=== PATIENT | female | born 1995 | race American Indian/Alaskan Native ===

== ENCOUNTER 2017-05-24 17:49 | Emergency (ER) | payer BC ==
[2017-05-24 19:59] LABS: Basophils % (Auto) 0.3 % (0.0-1.8); Eosinophils % (Auto) 0.1 % (0.0-4.3); Hematocrit 39.4 % (30.3-42.9); Hemoglobin 13.4 gm/dl (10.1-14.3); Mean Corpuscular HGB Conc 34 % (30-34); Mean Corpuscular Hemoglobin 31 pg (28-32); Mean Corpuscular Volume 92 fl (79-97); Platelet Count 292 K/mm3 (140-440); Red Blood Count 4.31 M/mm3 (3.65-5.03); Red Cell Distribution Width 12.3 % (13.2-15.2); White Blood Count 8.2 K/mm3 (4.5-11.0)
[2017-05-24 20:21] LABS: Anion Gap 16 mmol/L; BUN/Creatinine Ratio 18.57; Blood Urea Nitrogen 13 mg/dL (7-17); Calcium 8.9 mg/dL (8.4-10.2); Carbon Dioxide 28 mmol/L (22-30); Chloride 102.2 mmol/L (98-107); Creatine Kinase 46 units/L (30-135); Glucose 89 mg/dL (65-100); Potassium 3.8 mmol/L (3.6-5.0); Sodium 142 mmol/L (137-145)
--- NOTE | 2017-05-24 20:34 | Emergency Department Report ---
ED General Adult HPI - General Chief complaint: Allergic Reaction Stated complaint: ALLERGIC REACTION Time Seen by Provider: 05/24/17 20:33 Source: patient, RN notes reviewed Mode of arrival: Ambulatory Limitations: No Limitations - History of Present Illness Initial comments: This is a 21-year-old female, the patient is previously known to this provider. She denies chronic past medical conditions. She reports that she does not currently have an indwelling tampon, and that she does not take control tablets. The patient presents to the ER with diffuse rash. The rash is "all over my body." History of present for 3 days, and does not have exacerbating or relieving factors. Patient seen at an urgent care Center recently for same, given steroid shot, Zyrtec and hydroxyzine. Patient reports being sexually active with 2 male partners, either from use condoms. She denies headache, neck pain, abdominal pain, shortness of breath. She did complain of central chest pain, which has been present for over 24 hours, is intermittent, and worsens with swallowing. The pain does not radiate to the back, arms or neck. Contrary to what is documented in triage nurse documentation, patient denies lip swelling to me, as well as difficulty breathing. These lesions have no exacerbating or relieving factors. -: Gradual Location: chest, back, abdomen, left, right, upper extremity, lower extremity Severity scale (0 -10): 0 Consistency: constant Improves with: none Worsens with: none Associated Symptoms: chest pain, fever/chills (patient does not complain of fever per se, but is found to be febrile in the emergency department.) - Related Data Allergies Allergy/AdvReac Type Severity Reaction Status Date / Time No Known Allergies Allergy Unverified 05/24/17 17:58 ED Review of Systems ROS: Stated complaint: ALLERGIC REACTION Other details as noted in HPI Constitutional: denies: malaise Eyes: denies: vision change ENT: denies: throat pain Respiratory: denies: cough Cardiovascular: chest pain Gastrointestinal: denies: vomiting Genitourinary: denies: urgency, dysuria Musculoskeletal: denies: back pain, arthralgia Skin: rash, lesions Neurological: denies: weakness Psychiatric: anxiety ED Past Medical Hx - Past Medical History Previous Medical History?: No - Surgical History Past Surgical History?: No - Social History Smoking Status: Never Smoker Substance Use Type: Marijuana ED Physical Exam - General Limitations: No Limitations General appearance: alert, in no apparent distress - Head Head exam: Present: atraumatic, normocephalic - Eye Eye exam: Present: normal appearance, PERRL, EOMI. Absent: nystagmus - ENT ENT exam: Present: normal exam, normal orophraynx, mucous membranes moist, TM's normal bilaterally, normal external ear exam - Neck Neck exam: Present: normal inspection, full ROM. Absent: tenderness, meningismus - Respiratory Respiratory exam: Present: normal lung sounds bilaterally. Absent: respiratory distress, wheezes, rales, rhonchi, stridor, chest wall tenderness - Cardiovascular Cardiovascular Exam: Present: regular rate, normal rhythm, normal heart sounds. Absent: bradycardia, tachycardia, irregular rhythm, systolic murmur, diastolic murmur, rubs, gallop - GI/Abdominal GI/Abdominal exam: Present: soft, normal bowel sounds. Absent: distended, tenderness, guarding, rebound, rigid, pulsatile mass - External exam: Present: normal external exam Speculum exam: Present: normal speculum exam Bi-manual exam: Present: normal bi-manual exam, other (escorted by ER automotive service technician YAHAIRA SENIOR). Absent: cervical motion tendernes, adnexal tenderness , adnexal mass - Extremities Exam Extremities exam: Present: normal inspection, full ROM, normal capillary refill. Absent: tenderness, pedal edema, joint swelling, calf tenderness - Back Exam Back exam: Present: normal inspection, full ROM. Absent: tenderness, CVA tenderness (R), CVA tenderness (L), muscle spasm, paraspinal tenderness, vertebral tenderness - Neurological Exam Neurological exam: Present: alert, oriented X3, normal gait, other (Extraocular movements intact. Tongue midline. No facial droop. Facial sensation intact to light touch in the V1, V2, V3 distribution bilaterally. 5 and 5 strength in 4 extremities.. Sensation is intact to light touch in 4 extremities.). Absent : motor sensory deficit - Psychiatric Psychiatric exam: Present: normal affect, normal mood - Skin Skin exam: Present: warm, rash, other (there is diffuse erythematous macular rash, no streaking, no crepitus, nontender, no purpura,) ED Course Vital Signs 05/24/17 05/24/17 05/24/17 17:54 19:38 21:10 Temperature 100.5 F H 98.3 F Pulse Rate 98 H 90 Respiratory 18 18 20 Rate Blood Pressure 124/81 Blood Pressure 113/69 [Left] O2 Sat by Pulse 99 100 Oximetry 05/24/17 22:59 Temperature 98.1 F Pulse Rate 78 Respiratory 18 Rate Blood Pressure Blood Pressure 118/74 [Left] O2 Sat by Pulse 100 Oximetry ED Medical Decision Making - Lab Data Result diagrams: 05/24/17 19:36 05/24/17 19:36 Vital Signs 05/24/17 05/24/17 05/24/17 17:54 19:38 21:10 Temperature 100.5 F H 98.3 F Pulse Rate 98 H 90 Respiratory 18 18 20 Rate Blood Pressure 124/81 Blood Pressure 113/69 [Left] O2 Sat by Pulse 99 100 Oximetry Lab Results 05/24/17 05/24/17 05/24/17 Range/Units 19:36 19:36 19:36 WBC 8.2 (4.5-11.0) K/mm3 RBC 4.31 (3.65-5.03) M/mm3 Hgb 13.4 (10.1-14.3) gm/dl Hct 39.4 (30.3-42.9) % MCV 92 (79-97) fl MCH 31 (28-32) pg MCHC 34 (30-34) % RDW 12.3 L (13.2-15.2) % Plt Count 292 (140-440) K/mm3 Lymph % (Auto) 48.8 H (13.4-35.0) % Meeker % (Auto) 7.5 H (0.0-7.3) % Eos % (Auto) 0.1 (0.0-4.3) % Baso % (Auto) 0.3 (0.0-1.8) % Lymph # 4.0 (1.2-5.4) K/mm3 Meeker # 0.6 (0.0-0.8) K/mm3 Eos # 0.0 (0.0-0.4) K/mm3 Baso # 0.0 (0.0-0.1) K/mm3 Seg Neutrophils % 43.3 (40.0-70.0) % Seg Neutrophils # 3.6 (1.8-7.7) K/mm3 Sodium 142 (137-145) mmol/L Potassium 3.8 (3.6-5.0) mmol/L Chloride 102.2 (98-107) mmol/L Carbon Dioxide 28 (22-30) mmol/L Anion Gap 16 mmol/L BUN 13 (7-17) mg/dL Creatinine 0.7 (0.7-1.2) mg/dL Estimated GFR > 60 ml/min BUN/Creatinine Ratio 18.57 % Glucose 89 (65-100) mg/dL Calcium 8.9 (8.4-10.2) mg/dL Total Creatine Kinase 46 (30-135) units/L Troponin T (0.00-0.029) ng/mL NT-Pro-B Natriuret Pep 74.04 (0-450) pg/mL HCG, Qual Negative (Negative) 05/24/17 Range/Units Unknown WBC (4.5-11.0) K/mm3 RBC (3.65-5.03) M/mm3 Hgb (10.1-14.3) gm/dl Hct (30.3-42.9) % MCV (79-97) fl MCH (28-32) pg MCHC (30-34) % RDW (13.2-15.2) % Plt Count (140-440) K/mm3 Lymph % (Auto) (13.4-35.0) % Meeker % (Auto) (0.0-7.3) % Eos % (Auto) (0.0-4.3) % Baso % (Auto) (0.0-1.8) % Lymph # (1.2-5.4) K/mm3 Meeker # (0.0-0.8) K/mm3 Eos # (0.0-0.4) K/mm3 Baso # (0.0-0.1) K/mm3 Seg Neutrophils % (40.0-70.0) % Seg Neutrophils # (1.8-7.7) K/mm3 Sodium (137-145) mmol/L Potassium (3.6-5.0) mmol/L Chloride (98-107) mmol/L Carbon Dioxide (22-30) mmol/L Anion Gap mmol/L BUN (7-17) mg/dL Creatinine (0.7-1.2) mg/dL Estimated GFR ml/min BUN/Creatinine Ratio % Glucose (65-100) mg/dL Calcium (8.4-10.2) mg/dL Total Creatine Kinase (30-135) units/L Troponin T < 0.010 (0.00-0.029) ng/mL NT-Pro-B Natriuret Pep (0-450) pg/mL HCG, Qual (Negative) - EKG Data -: EKG Interpreted by Me EKG shows normal: sinus rhythm, axis, intervals, QRS complexes, ST-T waves - EKG Data When compared to previous EKG there are: previous EKG unavailable - Radiology Data Radiology results: image reviewed interpreted by me: X-ray of the chest is negative for acute disease - Medical Decision Making Differential diagnosis: Viral exanthem, hepatitis, acute HIV syndrome, syphilis , pneumonia, acute coronary syndrome, dysphagia Assessment and plan: 21-year-old female who is a primary complaint of rash. She also has a low-grade temperature. The rash does not appear to be consistent with purpura, or fever resolved on its own, there is no joint involvement, there is a benign gynecologic exam, with no retained tampon, there are no retained foreign bodies as far as I continue my physical exam, therefore toxic shock syndrome is very unlikely. May be a simple viral exanthem, however given that she is very young, and sexually intimate with 2 partners, STds also a possibility. Patient did complain of nonspecific chest pain, present for over 24 hours, low risk by DIVYA score, low risk by heart score, no pulmonary embolus or DVT risk factors, low risk by well's criteria, troponin negative 1, EKG morphologically within normal limits 1, as per the [employer] clinical policy, myocardial infarction may be excluded with 1 set of cardiac enzymes if symptoms present for greater than 8 hours. Patient observed in the ER For prolonged period of time without clinically decompensation, and she is able to tolerate liquid feeds. I don't think the patient requires emergent diagnosis for syphilis/hepatitis/HIV, and she is instructed to engage in safe sex practices, and to follow-up with the health Department, primary care doctor , or motion graphics artist. Return precautions are reviewed. Critical care attestation.: If time is entered above; I have spent that time in minutes in the direct care of this critically ill patient, excluding procedure time. ED Disposition Clinical Impression: Rash Disposition: DC-01 TO HOME OR SELFCARE Is pt being admited?: No Does the pt Need Aspirin: No Condition: Stable Instructions: Acute Rash (ED) Additional Instructions: Take Benadryl [id number] as needed for itching and rash. Take Tylenol, every 4-6 hours as needed for fever and pain, alternating with ibuprofen, alternating every 6 hours with food as needed for fever and pain. Cultures were sent today, results of be available on the next 3-5 days. Have a primary care doctor contact the medical records department to obtain culture results. I recommend that when engaging in sexual activity any partners wear condoms. Please make certain to practice safe sex practices. I recommend outpatient testing for HIV, syphilis, hepatitis. This can be done by her primary care doctor, motion graphics artist, or the health department. Return to the ER right away with fevers, chills, lethargy, irritability, projectile vomiting, change in mental status, inability to tolerate liquid feeds. Follow up with a primary care doctor within the next 7-10 days. Referrals: PRIMARY MD REBECCA [Primary Care Provider] - 3-5 Days TAYLER OLSON MD [Staff Physician] - 3-5 Days YUE BEDOLLA MD [Staff Physician] - 3-5 Days [facility] [Outside] - 3-5 Days
[2017-05-24] MEDS ORDERED: TYLENOL PO ONE (21:16)
[2017-05-24 23:00] VITALS: BP 118/74
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
== END 2017-05-24 23:00 | disposition home or self-care (01) ==
LOC: ED 17:49
DX: R21 Rash and other nonspecific skin eruption (principal); R07.89 Other chest pain; F12.10 Cannabis abuse, uncomplicated
CPT/HCPCS: 36415; 71020; 80048; 82550; 83880; 84484; 84703; 85025; 87210; 87591; 99284

== ENCOUNTER 2017-06-30 20:46 | Emergency (ER) | payer OTHER, BC ==
[2017-06-30 21:25] VITALS: BP 118/68
--- NOTE | 2017-06-30 23:07 | XRay Report ---
FINAL REPORT PROCEDURE: XR CHEST ROUTINE 2V TECHNIQUE: PA and lateral chest radiographs were obtained. CPT 95081 HISTORY: chest pain COMPARISON: No prior studies are available for comparison. FINDINGS: Heart: Normal. Mediastinum/Vessels: Normal. Lungs/Pleural space: Normal. Bony thorax: No acute osseous abnormality. Other: IMPRESSION: Normal examination.
[2017-06-30] MEDS: MORPHINE IV ONE (23:40)
[2017-06-30] MEDS: ZOFRAN IV ONE (23:45)
[2017-06-30] MEDS ORDERED: MORPHINE ONE (23:48)
[2017-06-30] MEDS ORDERED: ZOFRAN ONE (23:49)
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
== END 2017-07-01 01:00 | disposition home or self-care (01) ==
LOC: ED 20:46
DX: R07.9 Chest pain, unspecified (principal); V49.59XA Passenger injured in collision with other motor vehicles in traffic accident, initial encounter; X58.XXXA Exposure to other specified factors, initial encounter; Y93.9 Activity, unspecified; Y92.9 Unspecified place or not applicable; Y99.9 Unspecified external cause status
CPT/HCPCS: 36415; 71020; 84703; 96374; 96375; 99284; J2270; J2405